=== PATIENT | male | born 2000 | race Caucasian/White ===

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

== ENCOUNTER → 2018-09-29 | Outpatient (CLI) | payer OTHER | LOC: LAB.O 09:46 | PROVIDERS: ATTEND Nurse Practitioner Family | DX: Z00.00 Encounter for general adult medical examination without abnormal findings (principal); Z13.220 Encounter for screening for lipoid disorders; Z79.899 Other long term (current) drug therapy ==